=== PATIENT | female | born 1940 | race Caucasian/White ===

== ENCOUNTER 2017-07-09 02:08 | Inpatient (IN) | payer OTHER, BC ==
[2017-07-09 02:17] VITALS: BMI 28.3
[2017-07-09] MEDS ORDERED: CARDIZEM INJ 50 MG VIAL IVP ONE ×3 (02:34→04:34)
[2017-07-09] MEDS: NS 1000 ML 1,000 ML IV SCH ×2 (02:38→16:50)
--- NOTE | 2017-07-09 02:40 | DR.GENAD ---
HPI - PCP Primary Care Physician: Anupam KENT - Complaint/Symptoms Chief Complaint Doctors Comments: Patient states she woke up with her heart racing tonight just prior to coming to the emergency room. States her heart rate was 120 at home when it normally runs around 70 with all the medicines she takes for her heart. state she was told she had SVT and was seeing a manager agricultural in [place] but has not gone back to see him in years. She denies chest pain or SOB. She denies cold, cough, fever or chills. She denies swelling of hands or legs. States she takes Metroprolol 200mg daily with Norvasc 10mg daily with a cholesterol pill and aspirin. States she is not take a blood thinner. States she drinks about four cups of coffee daily and two sodas. She denies tobacco or alcohol usage. Chief Complaint:: WOKE UP FROM SLEEP AND FELT LIKE HEART WAS RACING; Self Treatment fo Chief Complaint: PT TOOK MELANTONIN TO HELP HER SLEEP TONIGHT. - Nurses notes reviewed Nurses Notes Review: Yes - Source History Provided: Patient - Mode of Arrival Mode of Arrival: Ambulatory - Timing Onset of Chief Complaint: 07/09/17 Came on: Suddenly - Duration Duration: Constant How lon Duration: Hours - Location Location: heart running away - Severity Severity: Moderate - Modifying Factors Worsens:: nothing Improves:: nothing <ANA ANAYA - Last Filed: 07/09/17 04:27> PMH - PMH Past Medical History: Yes Past Medical History: Dyslipidemia, Hypertension Past Surgical History: Yes Surgical History: Hysterectomy - Family History History of Family Medical Conditions: No Family Medical History: [place], Hypertension - Social History Alcohol Use: None Do you use any recreational Drugs:: No Lives With: Alone Lives Where: Home - infectious screening In the last 2 months have you had wt loss of >10#?: NO Have you had fever, night sweats or hemotysis?: No Have you traveled outside the country in the last 6 months?: No Isolation: Standard <ANA ANAYA - Last Filed: 07/09/17 04:27> ROS - Review of Systems Constitutional: No Symptoms Reported. negative: See HPI, Chills, Diaphoresis, Fever, Malaise, Weakness, Irritable, Fatigue, Loss of Appetite, Other Eyes: No Symptoms Reported. negative: See HPI, Eye Pain, Blurred Vision, Tearing, Discharge, Photophobia, Diplopia, Other ENTM: No Symptoms Reported. negative: See HPI, Ear Pain, Ear Discharge, Pulling on Ears, Hearing Loss, Nose Pain, Nose Discharge, Epistaxis, Nose Congestion, Mouth Pain, Mouth Swelling, Loose Teeth, Drooling, Throat Pain, Throat Swelling, Ear Foreign Body Respiratoy: No Symptoms Reported. negative: See HPI, Productive Cough, Non- Productive Cough, Moist Cough, Dry Cough, Hacking Cough, Barking Cough, Brassy Cough, Orthopnea, Short of Breath, Stridor, Wheezing, Hemoptysis, Other Cardiovascular: No Symptoms Reported, Palpitations. negative: See HPI, Chest Pain, Edema, Syncope, Cyanosis, Skin Mottling, Other Gastrointestinal/Abdominal: No Symptoms Reported. negative: See HPI, Abdominal Pain, Constipation, Diarrhea, Nausea, Vomiting, Food Intolerance, Other Genitourinary: No Symptoms Reported. negative: See HPI, Discharge, Dysuria, Frequency, Hematuria, Pain, Bleeding, Other Neurological: No Symptoms Reported Musculoskeletal: No Symptoms Reported. negative: See HPI, Back Pain, Gout, Joint Pain, Joint Swelling, Muscle Pain, Muscle Stiffness, Neck Pain, Right, Left, Neck, Chest wall, Rib(s), Back, Shoulder, Arm, Elbow, Forearm, Wrist, Hand , Pelvis, Hip, Leg, Knee, Ankle, Foot, Other Integumentary: No Symptoms Reported Hematologic/Lymphatic: No Symptoms Reported. negative: See HPI, Anemia, Blood Clots, Easy Bleeding, Easy Bruising, Swollen Glands, Lymphadenopathy, Other Endocrine: No Symptoms Reported Psychiatric: No Symptoms Reported. negative: See HPI, Anxiety, Depression, Hallucinations, Excessive crying, Suicidal, Other <ANA ANAYA - Last Filed: 07/09/17 04:27> PE - General Limitations: No Limitations General Appearance: Alert, In No Apparent Distress - Head Head Exam: Normal Inspection, Atraumatic, Normocephalic - Eyes Eye exam: Normal Appearance, PERRL, EOMI. negative: Scleral Icterus, Conjunctival Injection, Nystagmus, Miosis, Mydrasis, Periorbital Swelling, Periorbital Tenderness, Other - ENT ENT Exam: Normal Exam, Normal Oropharynx, Normal External Ear Exam, Mucous Membranes Moist, TM's Normal Bilaterally External Ear Exam: Normal External Inspection TM/Canal Exam: Bilateral Normal Nose Exam: Normal Nose Exam Mouth Exam: Normal Inspection Throat Exam: Normal Inspection. negative: Tonsillar Erythema, Tonsillomegaly, Tonsillar Exudate, R Peritonsillar Mass, L Peritonsillar Mass, Muffled Voice, Other - Neck Neck Exam: Normal Inspection, Full ROM, Trachea Midline - Chest Chest Inspection: Normal Inspection, Symmetric Chest Wall Rise - Respiratory Respiratory Exam: Normal Lung Sounds Bilat Respiratory Exam: Bilateral Clear to Auscultation - Cardiovascular Cardiovascular Exam: Regular Rate, Normal Rhythm, Tachycardia, Irregular Rhythm , Normal Heart Sounds - Abdominal Exam Abdominal Exam: Normal Inspection, Normal Bowel Sounds, Soft. negative: Distention, Tenderness, Guarding, Rebound, Rigidity, Dimnished Bowel Sounds, Hyperactive Bowel Sounds, Hypoactive Bowel Sounds, Organomegaly, Trauma, Incision, Ascites, Mass, Bruit, Pulsatile Mass, Hernia, Other Abdominal Tenderness: negative: RUQ, RLQ, LUQ, LLQ, Epigastrium, Suprapubic, Diffuse, Mild, Moderate, Severe, Other - Extremities Extremities Exam: Normal Inspection, Full ROM, Normal Capillary Refill. negative: Tenderness, Edema, Joint Swelling, Calf Tenderness, Other - Back Back Exam: Normal Inspection, Full ROM. negative: Tenderness, (R) CVA Tenderness, (L) CVA Tenderness, Muscle Spasm, Paraspinal Tenderness, Vertebral Tenderness, Rashes, (R) Sciatic Notch Tenderness, (L) Sciatic Notch Tendern, (R ) Straight Leg Raise, (L) Straight Leg Raise, Other - Neurologic Neurological Exam: Alert, Oriented X3, CN II-XII Intact, Normal Gait, Reflexes Normal - Psychiatric Psychiatric Exam: Normal Affect, Normal Mood. negative: Depressed, Agitated, Anxious, Flat Affect, Manic, Homicidal Ideation, Suicidal Ideation, Other - Skin Skin Exam: Warm, Dry, Intact, Normal Color <ANA ANAYA - Last Filed: 07/09/17 04:27> - Vital Signs Vitals: Temperature 99.3 F Pulse Rate [Apical] 66 Pulse Rate 129 Respiratory Rate 17 Blood Pressure [Left Arm] 122/60 Blood Pressure [Right Arm] 180/90 Blood Pressure 126/67 O2 Sat by Pulse Oximetry 99 Course - Reevaluation 1st: - Consultation Called: 04:28 Call Returned: 04:29 (Dr. Clark to admit) - Education/Counseling Education/Counseling: Patient, Family Educated On: Treatment, Diagnosis, Needs for Follow Up <ANA ANAYA - Last Filed: 07/09/17 04:27> ROR - Labs Reviewed Laboratory Results Reviewed?: Yes (All labs and x-ray results reviewed and discussed with patient) Result Diagrams: 07/09/17 02:35 07/09/17 02:35 - XRAY XRAY Interpreted by: Self (CXR: increased right hilar markings suggests atelectasis; no acute cardiopulmonary changes noted.) - EKG Rate: 106 Rhythm: Afib Block: None Hypertrophy: LVH ST: Nonsp <HÉCTORANA - Last Filed: 07/09/17 04:27> - Labs Reviewed Result Diagrams: 07/10/17 05:25 07/10/17 05:25 <JODY GOEL - Last Filed: 07/13/17 15:25> - Labs Reviewed Laboratory: WBC 7.4 X10^3/uL (3.6-10.0) 07/10/17 05:25 RBC 4.08 X10^6/uL (3.5-5.4) 07/10/17 05:25 Hgb 12.4 g/dL (12.0-16.0) 07/10/17 05:25 Hct 35.5 % (36.0-47.0) L 07/10/17 05:25 MCV 86.9 fL (80.0-100.0) 07/10/17 05:25 MCH 30.5 pg (27.0-34.0) 07/10/17 05:25 MCHC 35.1 g/dL (33.0-35.0) H 07/10/17 05:25 RDW 13.2 % (11.6-16.5) 07/10/17 05:25 Plt Count 226 X10^3/uL (150.0-450.0) 07/10/17 05:25 MPV 8.2 fL (7.4-11.0) 07/10/17 05:25 Neut % (Auto) 45.5 % (42.0-75.0) 07/10/17 05:25 Lymph % (Auto) 40.1 % (21.0-51.0) 07/10/17 05:25 [place] % (Auto) 8.7 % (0.0-13.0) 07/10/17 05:25 Eos % (Auto) 4.8 % (0.9-2.9) H 07/10/17 05:25 Baso % (Auto) 0.9 % (0.2-1.0) 07/10/17 05:25 Neut # (Auto) 3.4 x10^3/uL (2.2-4.8) 07/10/17 05:25 Lymph # (Auto) 3.0 X10^3/uL (1.3-2.9) H 07/10/17 05:25 [place] # (Auto) 0.6 x10^3/uL (0.3-0.8) 07/10/17 05:25 Eos # (Auto) 0.4 x10^3/uL (0.0-0.2) H 07/10/17 05:25 Baso # (Auto) 0.1 X10^3/uL (0.0-0.1) 07/10/17 05:25 Absolute Nucleated RBC 0.0 /100WBC 07/10/17 05:25 INR Target Range - 07/09/17 02:35 INR 0.97 (0.8-1.3) 07/09/17 02:35 APTT 25.5 SECONDS (22.9-36.5) 07/09/17 02:35 PTT Comment - 07/09/17 02:35 D-Dimer 312 ng/mL (0-400) 07/09/17 02:35 Sodium 141 mmol/L (136-145) 07/10/17 05:25 Corrected Sodium TNP 07/10/17 05:25 Potassium 3.7 mmol/L (3.5-5.1) 07/10/17 05:25 Chloride 106 mmol/L (98-107) 07/10/17 05:25 Carbon Dioxide 25.6 mmol/L (21-32) 07/10/17 05:25 BUN 10 mg/dL (7-18) 07/10/17 05:25 Creatinine 0.83 mg/dL (0.55-1.02) 07/10/17 05:25 Est GFR (MDRD) Af Amer > 60 (>60) 07/10/17 05:25 Est GFR (MDRD) Non-Af > 60 (>60) 07/10/17 05:25 Glucose 92 mg/dL (65-99) 07/10/17 05:25 Calcium 8.3 mg/dL (8.5-10.1) L 07/10/17 05:25 Corrected Calcium 8.9 mg/dL (8.5-10.1) 07/10/17 05:25 Magnesium 1.8 mg/dL (1.7-2.9) 07/09/17 02:35 Total Bilirubin 0.50 mg/dL (0.2-1.0) 07/10/17 05:25 AST 19 Units/L (15-37) 07/10/17 05:25 ALT 16 Units/L (12-78) 07/10/17 05:25 Alkaline Phosphatase 53 Units/L (46-116) 07/10/17 05:25 Creatine Kinase 64 Units/L (26-192) 07/09/17 16:42 CK-MB (CK-2) < 1.0 ng/mL (0-4.0) 07/09/17 16:42 CK/CKMB % Calc 1.6 % (<4) 07/09/17 16:42 Troponin I < 0.02 ng/mL (0-1.5) 07/09/17 16:42 Total Protein 6.5 g/dL (6.4-8.2) 07/10/17 05:25 Albumin 3.2 g/dL (3.4-5.0) L 07/10/17 05:25 Globulin 3.3 g/dL (2.5-4.5) 07/10/17 05:25 Albumin/Globulin Ratio 1.0 Ratio (1.1-2.1) L 07/10/17 05:25 Triglycerides 55 mg/dL (0-150) 07/09/17 05:06 Cholesterol 204 mg/dL (0-200) H 07/09/17 05:06 LDL Cholesterol, Calc 122 mg/dL (0-100) H 07/09/17 05:06 HDL Cholesterol 71 mg/dL (40-60) H 07/09/17 05:06 Cholesterol/HDL Ratio 2.9 (0.0-5.0) 07/09/17 05:06 Specimen Type Clean catch urine 07/09/17 03:52 Urine Color Pale yellow (YELLOW) 04/15/18 03:52 Urine Appearance Clear (CLEAR) 07/09/17 03:52 Urine pH 6.0 (5.0 - 8.0) 07/09/17 03:52 Ur Specific [place] 1.005 (1.000-1.030) 07/09/17 03:52 Urine Protein Negative (NEGATIVE) 07/09/17 03:52 Urine Glucose (UA) Negative (NEGATIVE) 07/09/17 03:52 Urine Ketones Negative (NEGATIVE) 07/09/17 03:52 Urine Occult Blood 2+ (NEGATIVE) 07/09/17 03:52 Urine Nitrite Negative (NEGATIVE) 07/09/17 03:52 Urine Bilirubin Negative (NEGATIVE) 07/09/17 03:52 Urine Urobilinogen Normal (NORMAL) 07/09/17 03:52 Ur Leukocyte Esterase 1+ (NEGATIVE) 07/09/17 03:52 Urine RBC 3-5 /HPF (NONE SEEN) 07/09/17 03:52 Urine WBC 0-2 /HPF (NONE SEEN) 07/09/17 03:52 Ur Squamous Epith Cells Few /HPF (NEGATIVE) 07/09/17 03:52 Urine Bacteria Negative /HPF (NEGATIVE) 07/09/17 03:52 Ur Culture Indicated? No/not indicated 07/09/17 03:52 <ANA ANAYA - Last Filed: 07/09/17 04:27> <JODY GOEL - Last Filed: 07/13/17 15:25> - Diagnosis Discharge Problem: Atrial fibrillation with RVR - Discharge Plan Disposition: 09 ADMITTED INPATIENT Condition: Stable
[2017-07-09 02:51] LABS: BASOPHILS # (AUTO) 0.1 X10^3/uL (0.0-0.1); BASOPHILS % (AUTO) 0.7 % (0.2-1.0); EOSINOPHILS # (AUTO) 0.4 x10^3/uL (0.0-0.2); HEMATOCRIT 38.6 % (36.0-47.0); HEMOGLOBIN 13.5 g/dL (12.0-16.0); LYMPHOCYTES % (AUTO) 36.5 % (21.0-51.0); MEAN CORPUSCULAR VOLUME 85.7 fL (80.0-100.0); MEAN PLATELET VOLUME 7.8 fL (7.4-11.0); MONOCYTES # (AUTO) 1.1 x10^3/uL (0.3-0.8); NEUTROPHILS # (AUTO) 5.3 x10^3/uL (2.2-4.8); NEUTROPHILS % (AUTO) 48.8 % (42.0-75.0); PLATELET COUNT 262 X10^3/uL (150.0-450.0); RED CELL DISTRIBUTION WIDTH 13.1 % (11.6-16.5); WHITE BLOOD COUNT 10.9 X10^3/uL (3.6-10.0)
[2017-07-09] MEDS ORDERED: NS 100 ML IV 100 ML IV ONE (03:07)
[2017-07-09 03:08] LABS: CHOL/HDL RATIO 3.1 (0.0-5.0)
[2017-07-09] MEDS ORDERED: CARDIZEM INJ 125 MG VIAL 125 MG in NS 100 ML IV 100 ML IV PRN ×2 (03:15→04:34)
[2017-07-09] MEDS ORDERED: K-LYTE EFFERVESCENT PO STA (03:24)
[2017-07-09] MEDS ORDERED: K-LYTE EFFERVESCENT ONE (03:26)
[2017-07-09 03:38] LABS: ALANINE AMINOTRANSFERASE 22 Units/L (12-78); ALBUMIN 4.2 g/dL (3.4-5.0); ALKALINE PHOSPHATASE 73 Units/L (46-116); ASPARTATE AMINO TRANSFERASE 23 Units/L (15-37); BLOOD UREA NITROGEN 21 mg/dL (7-18); CALCIUM 9.1 mg/dL (8.5-10.1); CARBON DIOXIDE 25.5 mmol/L (21-32); CHLORIDE 101 mmol/L (98-107); CREATINE KINASE 102 Units/L (26-192); CREATINE KINASE MB < 1.0 ng/mL (0-4.0); CREATININE 1.02 mg/dL (0.55-1.02); MAGNESIUM 1.8 mg/dL (1.7-2.9); SODIUM 138 mmol/L (136-145); TOTAL PROTEIN 7.8 g/dL (6.4-8.2); TROPONIN I < 0.02 ng/mL (0-1.5); eGFR BLACK RACES > 60 (>60); eGFR NON BLACK RACES 56 (>60)
[2017-07-09 04:20] LABS: BILIRUBIN,URINE NEGATIVE (NEGATIVE); BLOOD/HEMOGLOBIN,URINE 2+ (NEGATIVE); GLUCOSE, URINE NEGATIVE (NEGATIVE); KETONES,URINE NEGATIVE (NEGATIVE); LEUKOCYTE ESTERASE ,URINE 1+ (NEGATIVE); NITRITES,URINE NEGATIVE (NEGATIVE); PROTEIN,URINE NEGATIVE (NEGATIVE); UROBILINOGEN,URINE NORMAL (NORMAL)
[2017-07-09] MEDS ORDERED: LOVENOX INJ 80 MG SYR SC STA (04:23)
[2017-07-09 04:34] LABS: APPEARANCE,URINE CLEAR (CLEAR); BACTERIA,URINE NEGATIVE /HPF (NEGATIVE); COLOR,URINE PALE YELLOW (YELLOW); SQUAMOUS EPITHELIAL CELL,UR FEW /HPF (NEGATIVE)
[2017-07-09] MEDS ORDERED: ATIVAN TAB 1 MG PO PRN (04:35)
[2017-07-09] MEDS ORDERED: LOVENOX INJ 80 MG SYR SC ONE (04:51)
--- NOTE | 2017-07-09 05:08 | RAD ---
Chest, one view Indication: Woke up from sleep and felt like heart was racing Comparison: 08/16/2012 Findings: Heart size is normal. No focal consolidation, significant effusion or pneumothorax is ident ified. There is no acute osseous abnormality. Impression: No acute chest process or significant change since prior. Reported By:
[2017-07-09] MEDS: LANOXIN INJ IVP SCH ×2 (05:27→08:21)
[2017-07-09 06:02] LABS: ALANINE AMINOTRANSFERASE 20 Units/L (12-78); ALBUMIN 3.8 g/dL (3.4-5.0); ALKALINE PHOSPHATASE 66 Units/L (46-116); ASPARTATE AMINO TRANSFERASE 20 Units/L (15-37); BLOOD UREA NITROGEN 18 mg/dL (7-18); CALCIUM 8.8 mg/dL (8.5-10.1); CARBON DIOXIDE 26.5 mmol/L (21-32); CHLORIDE 102 mmol/L (98-107); CHOL/HDL RATIO 2.9 (0.0-5.0); CHOLESTEROL 204 mg/dL (0-200); CKMB % 1.1 % (<4); COR NA(FOR HYPERGLY) 140 mmol/L (136-145); CREATINE KINASE 89 Units/L (26-192); CREATINE KINASE MB < 1.0 ng/mL (0-4.0); CREATININE 1.08 mg/dL (0.55-1.02); HDL CHOLESTEROL 71 mg/dL (40-60); SODIUM 139 mmol/L (136-145); TOTAL PROTEIN 7.4 g/dL (6.4-8.2); TRIGLYCERIDES 55 mg/dL (0-150); TROPONIN I < 0.02 ng/mL (0-1.5); eGFR BLACK RACES > 60 (>60); eGFR NON BLACK RACES 53 (>60)
[2017-07-09] MEDS: PROTONIX INJ 40 MG VIAL IVP SCH (08:21)
[2017-07-09] MEDS: LOVENOX INJ 60 MG SYR SC SCH ×3 (08:21→20:31)
[2017-07-09] MEDS ORDERED: TOPROL XL PO ONE (10:28)
[2017-07-09] MEDS: TOPROL XL PO SCH (10:31)
[2017-07-09 11:09] LABS: CREATINE KINASE 75 Units/L (26-192); CREATINE KINASE MB < 1.0 ng/mL (0-4.0); TROPONIN I < 0.02 ng/mL (0-1.5)
[2017-07-09 11:12] LABS: CKMB % 1.3 % (<4)
[2017-07-09 17:18] LABS: CKMB % 1.6 % (<4); CREATINE KINASE 64 Units/L (26-192); CREATINE KINASE MB < 1.0 ng/mL (0-4.0); TROPONIN I < 0.02 ng/mL (0-1.5)
--- NOTE | 2017-07-09 20:43 | DR.H&P ---
H&P - History & Physical for Day of: H&P Date: 07/09/17 - Chief Complaint Chief Complaint: HIGH HEART RATE - Allergies Allergies/Adverse Reactions: Allergies Allergy/AdvReac Type Severity Reaction Status Date / Time No Known Drug Allergies Allergy Verified 07/09/17 02:52 - History of Present Illness History of Present Illness: IS A 76 YEAR OLD PATIENT OF WHO PRESENTED TO THE EMERGENCY ROOM WITH COMPLAINTS OF HER HEART RACING. PATIENT REPORTS THAT SHE WAS AWOKEN FROM A SLEEP WITH HER HEART RACING. PATIENT STATES THAT HER HEART RATE WAS 120 BEAT/MIN AT HOME. SHE REPORTS THAT HER HEART RATE USUALLY RUNS AROUND 70 BEATS/MIN. FAMILY REPORTS THAT SHE HAS BEEN TREATED BY A SMALL OFFSET PRINTER IN [place] FOR SVT YEARS AGO, BUT HAS NOT FOLLOWED UP WITH HIM IN SEVERAL YEARS. PATIENT DENIES CHEST PAIN OR SHORTNESS OF BREATH. SHE CURRENTLY TAKES METOPROLOL 200MG PO DAILY AND NORVASC 10MG PO DAILY. FAMILY REPORTS THAT PATIENT IS COMPLIANT WITH MEDICATIONS. PATIENT ADMITS TO FREQUENT INTAKE OF COFFEE AND SODA. SHE DENIES TOBACCO OR ALCOHOL USAGE. ON ARRIVAL TO THE ER, VITALS WERE 99.3-129-18-98%-126/67. LABS WERE OBTAINED. ABNORMAL LAB VALUES INCLUDE THE FOLLOWING: WBC 10.9, POTASSIUM 3.0, BUN 21, GFR 56, GLUCOSE 108, CHOLESTEROL 230, LDL 141, HCL 74. CARDIAC ENZYMES WITHIN NORMAL LIMITS. URINALYSIS REVEALS WBC 0-2, RBC 3-5, LEUKOCYTES 1+, BACTERIA NEGATIVE. EKG REVEALS ATRIAL FIBRILLATION. CHEST XRAY WAS OBTAINED AND REVEALS NO ACUTE CHEST PROCESS. SHE WAS GIVEN LOVENOX 75MG SC X 1 DOSE, K-LYTE 50MEQ, AND CARDIZEM 20MG IV BOLUS IN THE ER AND STARTED ON A CARDIZEM DRIP. SHE WAS ADMITTED TO THE INTENSIVE CARE UNIT FOR FURTHER EVALUATION AND TREATMENT. AFTER ARRIVAL TO THE UNIT, PATIENTS HEART RATE WAS NOTED TO HAVE DECREASED TO 49 BEATS/MIN. CARDIZEM DRIP WAS DECREASED TO 5MG/HR. AFTER NO INCREASE IN HEART RATE WAS NOTED , DRIP WAS DISCONTINUED. ON MORNING ROUNDS, PATIENT IS ALERT AND ORIENTED, LYING IN BED ON MORNING ROUNDS. SHE REPORTS IMPROVEMENT SINCE ADMISSION. CASE REVIEWER REVEALS ATRIAL FIBRILLATION WITH HEART RATE IN THE 70S. SHE DENIES SHORTNESS OF BREATH. TODAY, WE PLAN TO DECREASE HER CURRENT HOME MEDICATION OF METOPROLOL XL TO 100MG PO DAILY AND DISCONTINUE THE NORVASC. PATIENT WILL REMAIN IN THE INTENSIVE CARE UNIT FOR CLOSE OBSERVATION. SHE WILL REMAIN ON THE CASE REVIEWER. WE PLAN TO FOLLOW UP WITH AM LABS AND EKG AND CONTINUE TO MONITOR PATIENT. - Past Medical History Past Medical History: Dyslipidemia, Hypertension, Ventricular Tachycardia Additional Medical History: SVT - Past Surgical History Surgical History: Hysterectomy - Family History Family Medical History: [place], Hypertension - Social History Does patient currently use any type of tobacco product: No Have you used tobacco products in the last 12 months: No Type of Tobacco Use: None Alcohol Use: None Drug Use: None - Medications Home Medications: Aspirin EC [ASPIRIN EC 81 MG *] 81 mg PO DAILY 07/09/17 [History Confirmed 07/09] Calcium Carbonate/Vitamin D3 [Calcium 500 + Vit D Caplet] 1 each PO DAILY [History Confirmed 07/09/17] - Review of Systems Constitutional: No Symptoms Reported Eyes: No Symptoms Reported ENT: No Symptoms Reported Respiratory: No Symptoms Reported Cardiovascular: Palpitations Gastrointestinal: No Symptoms Reported Genitourinary: No Symptoms Reported Musculoskeletal: No Symptoms Reported Skin: No Symptoms Reported Neurological: No Symptoms Reported - Physical Exam Vital Signs: Temperature 99.7 F Pulse Rate [Apical] 63 Pulse Rate 59 Respiratory Rate 22 Blood Pressure [Left Arm] 130/60 Blood Pressure [Right Arm] 180/90 Blood Pressure 126/67 O2 Sat by Pulse Oximetry 98 Oriented: Normal Eyes: Normal Ear: Normal Nose: Normal Throat: Normal Respiratory: Clear Throughout Cardiovascular: Tachycardia. negative: S3, S4, Murmur, Edema : Normal Auscultation: Bowel Sounds: Normal Palpation: Normal Tenderness: Normal Skin: Normal Musculoskeletal: Normal Psychiatric: Normal Mood Description: Calm Affect: Normal Speech Pattern: Clear - Assessment/Plan (1) Atrial fibrillation Qualifiers: Atrial fibrillation type: unspecified Qualified Code(s): I48.91 - Unspecified atrial fibrillation Status: Acute Plan: METOPROLOL 100MG PO DAILY, CASE REVIEWER, CONTINUE TO MONITOR
[2017-07-09] MEDS ORDERED: LIPITOR TAB 10 MG PO SCH (21:00)
[2017-07-10] MEDS: NS 1000 ML 1,000 ML IV SCH ×2 (04:40→07:11)
[2017-07-10 06:22] LABS: BASOPHILS # (AUTO) 0.1 X10^3/uL (0.0-0.1); BASOPHILS % (AUTO) 0.9 % (0.2-1.0); EOSINOPHILS # (AUTO) 0.4 x10^3/uL (0.0-0.2); EOSINOPHILS % (AUTO) 4.8 % (0.9-2.9); HEMATOCRIT 35.5 % (36.0-47.0); HEMOGLOBIN 12.4 g/dL (12.0-16.0); LYMPHOCYTES % (AUTO) 40.1 % (21.0-51.0); MEAN CORPUSCULAR HEMOGLOBIN 30.5 pg (27.0-34.0); MEAN CORPUSCULAR HGB CONC 35.1 g/dL (33.0-35.0); MEAN CORPUSCULAR VOLUME 86.9 fL (80.0-100.0); MEAN PLATELET VOLUME 8.2 fL (7.4-11.0); MONOCYTES # (AUTO) 0.6 x10^3/uL (0.3-0.8); MONOCYTES % (AUTO) 8.7 % (0.0-13.0); NEUTROPHILS # (AUTO) 3.4 x10^3/uL (2.2-4.8); NEUTROPHILS % (AUTO) 45.5 % (42.0-75.0); PLATELET COUNT 226 X10^3/uL (150.0-450.0); RED BLOOD COUNT 4.08 X10^6/uL (3.5-5.4); RED CELL DISTRIBUTION WIDTH 13.2 % (11.6-16.5); WHITE BLOOD COUNT 7.4 X10^3/uL (3.6-10.0)
[2017-07-10 06:45] LABS: ALANINE AMINOTRANSFERASE 16 Units/L (12-78); ALBUMIN 3.2 g/dL (3.4-5.0); ALKALINE PHOSPHATASE 53 Units/L (46-116); ASPARTATE AMINO TRANSFERASE 19 Units/L (15-37); BLOOD UREA NITROGEN 10 mg/dL (7-18); CALCIUM 8.3 mg/dL (8.5-10.1); CARBON DIOXIDE 25.6 mmol/L (21-32); CHLORIDE 106 mmol/L (98-107); COR CA(FOR HYPOALB) 8.9 mg/dL (8.5-10.1); CREATININE 0.83 mg/dL (0.55-1.02); SODIUM 141 mmol/L (136-145); TOTAL PROTEIN 6.5 g/dL (6.4-8.2); eGFR BLACK RACES > 60 (>60); eGFR NON BLACK RACES > 60 (>60)
[2017-07-10] MEDS ORDERED: EAC PO SCH (09:00)
[2017-07-10] MEDS ORDERED: OSCAL+D or CALTRATE+D PO SCH (09:00)
[2017-07-10] MEDS ORDERED: CALCIUM CARBONATE PO SCH (09:00)
[2017-07-10] MEDS ORDERED: VITAMIN D3 PO SCH (09:00)
[2017-07-10] MEDS ORDERED: ASPIRIN EC 81 MG PO SCH (09:00)
[2017-07-10] MEDS ORDERED: [UNRECOGNIZED DRUG - OTHER] PO SCH (09:00)
[2017-07-10] MEDS: LOVENOX INJ 60 MG SYR SC SCH (09:31)
[2017-07-10] MEDS ORDERED: ELIQUIS PO SCH (09:45)
[2017-07-10] MEDS ORDERED: TOPROL XL PO ONE (09:59)
[2017-07-10] MEDS ORDERED: NORVASC TAB 5 MG PO SCH (10:00)
[2017-07-10] MEDS ORDERED: CARDIZEM SR 120 MG PO ONE (10:00)
[2017-07-10] MEDS: PROTONIX INJ 40 MG VIAL IVP SCH (10:01)
[2017-07-10] MEDS: TOPROL XL PO SCH (10:02)
[2017-07-10 11:15] VITALS: BP 166/72
== END 2017-07-10 11:05 | disposition home or self-care (01) | DRG 310 ==
LOC: ER 02:08 → ICU 04:31
PROVIDERS: ADMIT Internal Medicine; ATTEND Internal Medicine
DX: I48.91 Unspecified atrial fibrillation (principal); E87.6 Hypokalemia; E78.2 Mixed hyperlipidemia; I10 Essential (primary) hypertension; R94.31 Abnormal electrocardiogram [ECG] [EKG]; Z79.01 Long term (current) use of anticoagulants
CPT/HCPCS: 36415; 71045; 80053; 80061; 81001; 82550; 82553; 83735; 84484; 85025; 85378; 85610; 85730; 93005; 93010; 93041; 96365; 96367; 96372; 96374; 96375; 99284; 99285; A4216; A4222; C9113; J1650; J3490